=== PATIENT | female | born 1970 | race American Indian/Alaskan Native ===

== ENCOUNTER 2017-04-01 08:17 | Emergency (ER) | payer MEDICAID ==
[2017-04-01 08:26] VITALS: BP 123/84
[2017-04-01] MEDS ORDERED: XYLOCAINE 1% 20 mL INFILTRATI ONE (09:44)
[2017-04-01] MEDS ORDERED: TORADOL IM ONE (09:44)
[2017-04-01] MEDS ORDERED: CLEOCIN PO ONE (09:44)
--- NOTE | 2017-04-01 11:31 | Emergency Department Report ---
Entered by DEB LAZCANO, acting as scribe for SANKET MCFADDEN NP. - General Chief complaint: Skin/Abscess/Foreign Body Stated complaint: LT ARM RASH /BOIL ON FACE Time Seen by Provider: 04/01/17 09:33 Source: patient Mode of arrival: Ambulatory Limitations: No Limitations - History of Present Illness Initial comments: 47 y/o female with a PMHx of HIV presents to the ED c/o an abscess on left preauricular that began 1 week ago. Aggravated with palpation and alleviated with nothing. Associated 6/10 throbbing pain, swelling, erythema, and chills, but she denies ear pain, fever, nausea, vomiting, and drainage. Notes Hx of abscess in same spot that had to be drained. Patient's secondary complaint consists of a rash to left antecubital area that began 2 days ago. Associated itching, but she denies any drainage from area. Denies any changes to soaps or detergents. Denies Hx of eczema. Applied Cortisone with some relief. Reports taking new medication for HIV. She states her last CD4 count in January 2017 was in the 500s. Allergic to sulfamethoxazole and trimethprim. Patient states that she does not like to take narcotics for pain. MD complaint: rash ( left antecubital area ), abscess/boil (left preauricular) -: days(s) (2 days for the rash on left antecubital area ), week(s) (1 weeks for abscess on left outer ear) Tetanus Up to Date: no Severity: moderate (abscess on left preauricular ) Severity scale (0 -10): 6 (abscess on left preauricular) Quality: other (abscess on left preauricular is described as throbbing) Consistency: constant Improves with: none Worsens with: palpation Context: none Associated symptoms: denies other symptoms, chills, itching Treatments Prior to Arrival: OTC topical medication (Cortisone applied to rash with some relief) - Related Data Previous Rx's Medication Instructions Recorded Last Taken Type Clindamycin [Clindamycin CAP] 300 mg PO Q8H #30 cap 04/01/17 Unknown Rx Ibuprofen [Motrin] 600 mg PO Q8H PRN #15 tablet 04/01/17 Unknown Rx Allergies Allergy/AdvReac Type Severity Reaction Status Date / Time sulfamethoxazole Allergy Swelling Verified 04/30/16 08:25 [From Bactrim] trimethoprim [From Bactrim] Allergy Swelling Verified 04/30/16 08:25 Abscess Boil HPI - HPI Chief Complaint: Skin/Abscess/Foreign Body Stated Complaint: LT ARM RASH /BOIL ON FACE Time Seen by Provider: 04/01/17 09:33 Duration: 2 Days (rash on left antecubital area and 1 week for abscess on left preauricular) Location: Other (left preauricular and left antecubital area) Severity: Moderate (6/10 pain from abscess on left preauricular) History: Yes Pain, No Fever, No Purulent Drainage, No Numbness, No Foreign Body , No Previous History, No Insect Bite Home Medications: Previous Rx's Medication Instructions Recorded Last Taken Type Clindamycin [Clindamycin CAP] 300 mg PO Q8H #30 cap 04/01/17 Unknown Rx Ibuprofen [Motrin] 600 mg PO Q8H PRN #15 tablet 04/01/17 Unknown Rx Allergies/Adverse Reactions: Allergies Allergy/AdvReac Type Severity Reaction Status Date / Time sulfamethoxazole Allergy Swelling Verified 04/30/16 08:25 [From Bactrim] trimethoprim [From Bactrim] Allergy Swelling Verified 04/30/16 08:25 ED Review of Systems Comment: All other systems reviewed and negative Constitutional: chills. denies: diaphoresis, fever, weakness ENT: denies: ear pain, throat pain Respiratory: no symptoms reported. denies: cough, shortness of breath, wheezing Cardiovascular: denies: chest pain, palpitations Endocrine: no symptoms reported Gastrointestinal: denies: nausea, vomiting Musculoskeletal: denies: joint swelling, arthralgia, myalgia Skin: rash (rash to left antecubital area with associated itching), other ( abscess on left preauricular with associated pain). denies: lesions Neurological: denies: headache, numbness ED Past Medical Hx - Past Medical History Previous Medical History?: Yes Hx HIV: Yes - Surgical History Past Surgical History?: No - Social History Smoking Status: Current Every Day Smoker Substance Use Type: None - Medications Home Medications: Home Medications Medication Instructions Recorded Confirmed Last Taken Type Clindamycin [Clindamycin CAP] 300 mg PO Q8H #30 cap 04/01/17 Unknown Rx Ibuprofen [Motrin] 600 mg PO Q8H PRN #15 tablet 04/01/17 Unknown Rx ED Physical Exam - General Limitations: No Limitations General appearance: alert, in no apparent distress - Head Head exam: Present: atraumatic, normocephalic, other (small amount of left facial swelling ) - Eye Eye exam: Present: normal appearance, PERRL, EOMI Pupils: Present: normal accommodation - ENT ENT exam: Present: normal exam, mucous membranes moist, TM's normal bilaterally. Absent: normal external ear exam (palpable abscess to left preauricular) - Expanded ENT Exam Expanded Ear exam: Present: other (no mastoid tenderness ). Absent: normal external inspection (palpable abscess to left preauricular) Mouth exam: Present: normal external inspection, tongue normal Teeth exam: Present: normal inspection Throat exam: Positive: normal inspection - Neck Neck exam: Present: normal inspection, full ROM. Absent: tenderness, meningismus, lymphadenopathy - Respiratory Respiratory exam: Present: normal lung sounds bilaterally. Absent: respiratory distress, wheezes, rales, rhonchi, stridor - Cardiovascular Cardiovascular Exam: Present: regular rate, normal rhythm. Absent: systolic murmur, diastolic murmur, rubs, gallop - GI/Abdominal GI/Abdominal exam: Present: soft, normal bowel sounds. Absent: distended - Extremities Exam Extremities exam: Present: normal inspection, full ROM - Back Exam Back exam: Present: normal inspection - Neurological Exam Neurological exam: Present: alert, oriented X3 - Psychiatric Psychiatric exam: Present: normal affect, normal mood - Skin Skin exam: Present: warm, dry, intact, rash (hyperpigmented scaly rash present to left antecubital area ) ED Course Vital Signs 04/01/17 08:23 Temperature 98.1 F Pulse Rate 95 H Respiratory 18 Rate Blood Pressure 123/84 O2 Sat by Pulse 100 Oximetry - Reevaluation(s) Reevaluation #1: 04/01/17 09:45 Verbal consent given for I&D. 04/01/17 11:11 PT tolerated I and D. strict return precautions reviewed. PT has no questions at this time. - I & D Left Face Type of Procedure: Simple Site: L face Blade Size: 11 I & D Procedure: betadine prep, sterile drapes applied, sterile dressing applied , no gauze wick placed (too small ) Progress: skin cleansed with betadine. 0.5mls of 1% lidocaine used to anaesthetize the area. 11 blade used to make a 0.5 cm incision. small amount of purulent drainage noted. site flushed and locutions broken up with hemostats. pt tolerated the procedure well, without immediate complications - Pulse Oximetry Interpretation Digit-Finger Initial Pulse Oximetry Readin Actions Taken: none ED Medical Decision Making - Differential Diagnosis abscess, cellulitis, contact dermatitis Critical Care Time: No ED Disposition Clinical Impression: Facial abscess, Acute eczema Disposition: - TO HOME OR SELFCARE Is pt being admited?: No Does the pt Need Aspirin: No Condition: Stable Instructions: Eczema (ED), Abscess Incision and Drainage (ED), Abscess (ED) Additional Instructions: Continue using hydrocortisone ointment on L arm Return in 2 days for recheck, return to ED sooner if fevers, chills, nausea or vomiting Continue warm compresses to L face Prescriptions: Clindamycin [Clindamycin CAP] 300 mg PO Q8H #30 cap Ibuprofen [Motrin] 600 mg PO Q8H PRN #15 tablet PRN Reason: Pain Referrals: PRIMARY CARE,MD [Primary Care Provider] - 3-5 Days Forms: Work/School Release Form(ED) Time of Disposition: 11:14 This documentation as recorded by the NENO reddy JASMINE,accurately reflects the service I personally performed and the decisions made by LESA gregg TRACY M, BABAK.
== END 2017-04-01 11:32 | disposition home or self-care (01) ==
LOC: ED 08:17
DX: L02.01 Cutaneous abscess of face (principal); L30.9 Dermatitis, unspecified; F17.210 Nicotine dependence, cigarettes, uncomplicated; Z88.1 Allergy status to other antibiotic agents; Z88.2 Allergy status to sulfonamides
CPT/HCPCS: 10060; 87116; 96372; 99282; J1885

== ENCOUNTER 2017-04-04 08:20 | Emergency (ER) | payer MEDICAID ==
[2017-04-04 09:01] VITALS: BP 123/81
[2017-04-04] MEDS ORDERED: TRIPLE ANTIBIOTIC TP ONE (10:14)
[2017-04-04] MEDS ORDERED: XYLOCAINE 1% 20 mL INFILTRATI NR (10:30)
--- NOTE | 2017-04-04 15:24 | Emergency Department Report ---
Entered by ALPHONSE GOODRICH, acting as scribe for LEONEL GARCIA PA. ED Laceration HPI - HPI Chief Complaint: Laceration/Recheck/Suture Stated Complaint: FACE BOIL Time Seen by Provider: 04/04/17 10:02 Location: Head (left cheek region) Severity: mild Tetanus Status: Up to Date Laceration Symptoms: No Foreign Body Sensation, No Numbness, No Weakness, No Pain Other History: 47 y/o female, with no PMHx, presents with left cheek region boil recheck that started 4 days ago. Sx include mild bleeding with purulent drainage. Pt notes it was lanced here at [facility] 4 days ago and it here for a wound recheck. She also notes regularly taking her prescribed antibiotics given to her 4 days ago. No additional Sx. ED Review of Systems ROS: Stated complaint: FACE BOIL Other details as noted in HPI Comment: All other systems reviewed and negative Constitutional: denies: chills, fever Respiratory: denies: cough, shortness of breath Cardiovascular: denies: chest pain Gastrointestinal: denies: abdominal pain, nausea, vomiting Skin: other (boil recheck left cheek region ). denies: rash Neurological: denies: headache, numbness ED Past Medical Hx - Past Medical History Previous Medical History?: Yes Hx HIV: Yes - Surgical History Past Surgical History?: No - Social History Smoking Status: Current Every Day Smoker Substance Use Type: None - Medications Home Medications: Home Medications Medication Instructions Recorded Confirmed Last Taken Type Clindamycin [Clindamycin CAP] 300 mg PO Q8H #30 cap 04/01/17 Unknown Rx Ibuprofen [Motrin] 600 mg PO Q8H PRN #15 tablet 04/01/17 Unknown Rx Laceration Physical Exam - Exam General: Vital signs noted. No distress. Alert and acting appropriately. GENERAL: Patient is alert and oriented x 3. No apparent distress, normal gait, atraumatic. HEAD: Head is normocephalic and atraumatic. EARS: Symmetrical, atraumatic, non tender, ear canal clear with moderate cerumen , tympanic membrane non inflamed, no swelling. 2-3 cm fluctuant abscess at the preauricular region., Nontender to palpation, nontender erythema Gross auditory nml bilaterally. LUNGS: Symmetrical with respiration. No wheezing, rales or crackles, CTAB. HEART: Regular rate and rhythm with normal S1/S2 present. No murmurs, rubs, or gallops. Wound Length (cm): 2 (cm) Laceration Location: Head (left cheek region) Full Body Front + Back: 1 - 2cm boil, purulent drainage, minimal bleeding. Flangent, soft with no redness Laceration Exam: No Foreign Body, No Exposed Tendon, Vessel, or Nerve, No Tendon Injury, No Normal Distal CMS ED Course Vital Signs 04/04/17 08:59 Temperature 98.3 F Pulse Rate 100 H Respiratory 16 Rate Blood Pressure 123/81 O2 Sat by Pulse 97 Oximetry ED Medical Decision Making - Medical Decision Making 47-year-old female presents with a wound check from I&D 2 days ago. On exam it was noticed that abscess is fluctuant and probably laceration was well-healed. Patient positioned appropriately, #11 blade scalpal used for single incision. Copius drainage of pus. Procedure tolerated without complications. Wound dressed with sterile 4x4 guaze and paper tape. Pt tolerated procedure well. Discussed with patient to continue taking antibiotics. Signs are normal patient is in no acute distress. Critical care attestation.: If time is entered above; I have spent that time in minutes in the direct care of this critically ill patient, excluding procedure time. ED Disposition Clinical Impression: Facial abscess, Wound check, abscess Disposition: TO HOME OR SELFCARE Is pt being admited?: No Does the pt Need Aspirin: No Condition: Stable Instructions: Acute Wound Care (ED), Abscess (ED) Additional Instructions: Continue taking antibiotics as prescribed Lower with her primary care physician. Referrals: JUAN BANKS MD [Primary Care Provider] - 3-5 Days Forms: Work/School Release Form(ED) Time of Disposition: 11:02 This documentation as recorded by the JOLEEN reddy RYAN,accurately reflects the service I personally performed and the decisions made by ,LEONEL GARCIA PA.
== END 2017-04-04 11:13 | disposition home or self-care (01) ==
LOC: ED 08:20
DX: L02.01 Cutaneous abscess of face (principal); F17.200 Nicotine dependence, unspecified, uncomplicated; Z21 Asymptomatic human immunodeficiency virus [HIV] infection status
CPT/HCPCS: A6250

== ENCOUNTER 2019-11-21 08:22 | Emergency (ER) | payer MEDICAID ==
[2019-11-21 08:30] VITALS: BP 104/73
--- NOTE | 2019-11-21 11:00 | XRay Report ---
CHEST 2 VIEWS INDICATION: SOB, cough, HIV+. COMPARISON: None. FINDINGS: Support devices: None. Heart: Within normal limits. Lungs/Pleura: No acute air space or interstitial disease. No significant pleural effusion. IMPRESSION: No acute findings. Signer Name: Erlin Bella MD Signed: 11/21/2019 10:55 AM Workstation Name: [id number]
--- NOTE | 2019-11-21 11:32 | Emergency Department Report ---
Minor Respiratory - HPI Chief Complaint: Upper Respiratory Infection Stated Complaint: SWEATING/NO ENERGY/COUGH Time Seen by Provider: 11/21/19 11:17 Duration: 4 Days Pain Location: Nose Severity: moderate Minor Respiratory: Yes Rhinorrhea, Yes Able to Tolerate Fluids, Yes Cough, Yes Sick Contacts, No Sore Throat, No Ear Pain, No Hemoptysis, No Chest Pain, No Shortness of Breath, No Fever Other History: This is a 49-year-old -[place] female who presents to the emergency room with a cough, fatigue, and occasional sweats for 4 days. Past medical history of HIV. Patient states she was diagnosed with influenza 3 weeks ago and completed Tamiflu. Patient states symptoms improved but returned 4 days ago. She denies fever, myalgia, nausea, vomiting, diarrhea, abdominal pain, or sore throat. ED Review of Systems ROS: Stated complaint: SWEATING/NO ENERGY/COUGH Other details as noted in HPI Constitutional: chills. denies: fever ENT: congestion. denies: ear pain, throat pain Respiratory: cough. denies: shortness of breath, wheezing Cardiovascular: denies: chest pain, palpitations Gastrointestinal: denies: abdominal pain, nausea, diarrhea Musculoskeletal: denies: back pain, joint swelling, arthralgia Skin: denies: rash, lesions Neurological: denies: headache, weakness, paresthesias Psychiatric: denies: anxiety, depression ED Past Medical Hx - Past Medical History Previous Medical History?: Yes Hx HIV: Yes - Social History Smoking Status: Current Every Day Smoker Substance Use Type: None - Medications Home Medications: Home Medications Medication Instructions Recorded Confirmed Last Taken Type Clindamycin [Clindamycin CAP] 300 mg PO Q8H #30 cap 04/01/17 Unknown Rx Ibuprofen [Motrin] 600 mg PO Q8H PRN #15 tablet 04/01/17 Unknown Rx Benzonatate [Tessalon Perles] 100 mg PO Q8HR PRN #30 capsule 11/21/19 Unknown Rx Minor Respiratory Exam - Exam General: Vital signs noted. No distress. Alert and acting appropriately. HEENT: Yes Moist Mucous Membranes, Yes Rhinorrhea, No Pharyngeal Erythema, No Pharyngeal Exudates, No Conjuctival Injection, No Frontal Tenderness, No Maxillary Tenderness Ear: Neither TM Bulge, Neither TM Erythema, Neither EAC Pain, Neither EAC Discharge Neck: Yes Supple, No Adenopathy Lungs: Yes Good Air Exchange, No Wheezes, No Ronchi, No Stridor, No Cough, No Labored Respirations, No Retractions, No Use of Accessory Muscles, No Other Abnormal Lung Sounds Heart: Yes Regular, No Murmur Abdomen: Yes Normal Bowel Sounds, No Tenderness, No Peritoneal Signs Skin: No Rash, No Edema Neurologic: Alert and oriented, no deficits. Musculoskeletal: Unremarkable. ED Course Vital Signs 11/21/19 08:29 Temperature 97.8 F Pulse Rate 102 H Respiratory 16 Rate Blood Pressure 104/73 [Right] O2 Sat by Pulse 96 Oximetry ED Medical Decision Making - Radiology Data Radiology results: report reviewed CHEST 2 VIEWS INDICATION: SOB, cough, HIV+. COMPARISON: None. FINDINGS: Support devices: None. Heart: Within normal limits. Lungs/Pleura: No acute air space or interstitial disease. No significant pleural effusion. IMPRESSION: No acute findings. - Medical Decision Making 49 y.o. female that presents with cough, fatigue, and diaphoresis for 4 days. Past medical history of HIV. Patient examined by me and stable. VSS and patient in no acute distress. Nontoxic appearance. A chest x-ray was obtained with no acute cardiopulmonary findings. Mild congestion on exam. Patient no trismus, no airway compromise. Able to tolerate by mouth. Rapid influenza deferred at this time due to no fever and 4 days of symptoms for Tamiflu. 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 Start cough suppressant. Reviewed results and ER plan with patient. Discharge home with prompt outpatient PCP follow up; return precautions discussed. Critical care attestation.: If time is entered above; I have spent that time in minutes in the direct care of this critically ill patient, excluding procedure time. ED Disposition Clinical Impression: Cough in adult, Acute viral syndrome Disposition: - TO HOME OR SELFCARE Is pt being admited?: No Condition: Stable Instructions: Viral Syndrome (ED), Cold Symptoms (ED) Prescriptions: Benzonatate [Tessalon Perles] 100 mg PO Q8HR PRN #30 capsule PRN Reason: Cough Referrals: [facility] [place] [Outside] - 3-5 Days [facility] [Outside] - 3-5 Days [facility] [Outside] - 3-5 Days Time of Disposition: 11:50
== END 2019-11-21 12:04 | disposition home or self-care (01) ==
LOC: ED 08:22
DX: B34.9 Viral infection, unspecified (principal); F17.200 Nicotine dependence, unspecified, uncomplicated; Z79.899 Other long term (current) drug therapy; Z88.2 Allergy status to sulfonamides
CPT/HCPCS: 71046